=== PATIENT | male | born 1970 | race Caucasian/White ===

== ENCOUNTER → 2022-05-09 | Outpatient (CLI) | payer OTHER ==
[2022-05-09 15:48] LABS: BASO # 0.04 K/mm3 (0.02-0.10); EOS # 0.29 K/mm3 (0.04-0.40); EOS % 4.2 % (0.0-4.0); HEMATOCRIT 31.7 % (42.0-52.0); LYMPH# 1.89 K/mm3 (1.50-4.00); MEAN CELL VOLUME 87 fl (78-100); MEAN CORPUSCULAR HEMOGLOBIN 27 pg (27-31); MEAN CORPUSCULAR HGB CONC 32 g/dL (33-37); MONO # 0.47 K/mm3 (0.20-0.80); NEU # 4.17 K/mm3 (1.40-6.50); PLATELET COUNT 352 K/mm3 (130-400); RED BLOOD COUNT 3.65 M/mm3 (4.20-5.60); RED CELL DISTRIBUTION WIDTH 12.6 % (11.5-14.5); WHITE BLOOD COUNT 6.9 K/mm3 (4.8-10.8)
[2022-05-09 16:00] LABS: ALBUMIN 3.7 g/dL (3.5-5.0)
[2022-05-09 16:01] LABS: POTASSIUM 4.9 mmol/L (3.5-5.1)
[2022-05-09 16:03] LABS: TOTAL PROTEIN 8.3 g/dL (6.4-8.3)
[2022-05-09 16:05] LABS: TOTAL BILIRUBIN 0.3 mg/dL (0.2-1.2)
[2022-05-09 17:31] LABS: ERYTHROCYTE SEDIMENTATION RATE 83 mm/hr (0-20)
== END ==
LOC: LAB 14:31
PROVIDERS: Physician Assistant
DX: M86.9 Osteomyelitis, unspecified (principal)

== ENCOUNTER → 2022-05-15 | Outpatient (CLI) | payer OTHER ==
[2022-05-15 14:38] LABS: BASO # 0.03 K/mm3 (0.02-0.10); EOS # 0.24 K/mm3 (0.04-0.40); EOS % 4.6 % (0.0-4.0); HEMATOCRIT 36.5 % (42.0-52.0); HEMOGLOBIN 11.6 g/dL (13.5-18.0); LYMPH# 1.49 K/mm3 (1.50-4.00); MEAN CELL VOLUME 86 fl (78-100); MEAN CORPUSCULAR HEMOGLOBIN 27 pg (27-31); MEAN CORPUSCULAR HGB CONC 32 g/dL (33-37); MEAN PLATELET VOLUME 9.6 fl (7.4-10.4); MONO # 0.33 K/mm3 (0.20-0.80); NEU # 3.09 K/mm3 (1.40-6.50); PLATELET COUNT 306 K/mm3 (130-400); RED BLOOD COUNT 4.24 M/mm3 (4.20-5.60); RED CELL DISTRIBUTION WIDTH 12.6 % (11.5-14.5); WHITE BLOOD COUNT 5.2 K/mm3 (4.8-10.8)
[2022-05-15 14:49] LABS: ALBUMIN 3.9 g/dL (3.5-5.0); POTASSIUM 4.3 mmol/L (3.5-5.1)
[2022-05-15 14:50] LABS: CALCIUM 9.1 mg/dL (8.3-10.5)
[2022-05-15 14:51] LABS: TOTAL PROTEIN 8.5 g/dL (6.4-8.3)
[2022-05-15 14:53] LABS: TOTAL BILIRUBIN 0.5 mg/dL (0.2-1.2)
[2022-05-15 15:53] LABS: ERYTHROCYTE SEDIMENTATION RATE 55 mm/hr (0-20)
== END ==
LOC: LAB 14:06
PROVIDERS: Nurse Practitioner
DX: M86.9 Osteomyelitis, unspecified (principal)

== ENCOUNTER → 2022-05-22 | Outpatient (CLI) | payer OTHER ==
[2022-05-22 14:11] LABS: BASO # 0.02 K/mm3 (0.02-0.10); EOS # 0.18 K/mm3 (0.04-0.40); EOS % 3.6 % (0.0-4.0); HEMATOCRIT 39.5 % (42.0-52.0); HEMOGLOBIN 12.6 g/dL (13.5-18.0); LYMPH# 1.41 K/mm3 (1.50-4.00); MEAN CELL VOLUME 87 fl (78-100); MEAN CORPUSCULAR HEMOGLOBIN 28 pg (27-31); MEAN CORPUSCULAR HGB CONC 32 g/dL (33-37); MEAN PLATELET VOLUME 9.8 fl (7.4-10.4); MONO # 0.32 K/mm3 (0.20-0.80); NEU # 3.08 K/mm3 (1.40-6.50); PLATELET COUNT 267 K/mm3 (130-400); RED BLOOD COUNT 4.54 M/mm3 (4.20-5.60); RED CELL DISTRIBUTION WIDTH 12.9 % (11.5-14.5)
[2022-05-22 14:21] LABS: ALBUMIN 4.1 g/dL (3.5-5.0); POTASSIUM 4.9 mmol/L (3.5-5.1)
[2022-05-22 14:22] LABS: CALCIUM 9.4 mg/dL (8.3-10.5)
[2022-05-22 14:24] LABS: TOTAL PROTEIN 8.3 g/dL (6.4-8.3)
[2022-05-22 14:25] LABS: TOTAL BILIRUBIN 0.6 mg/dL (0.2-1.2)
[2022-05-22 15:15] LABS: ERYTHROCYTE SEDIMENTATION RATE 52 mm/hr (0-20)
== END ==
LOC: LAB 13:53
DX: Z01.89 Encounter for other specified special examinations (principal)

== ENCOUNTER 2022-05-29 15:43 | Outpatient (RCR) | payer OTHER ==
[2022-05-09 14:45] VITALS: BP 143/94
[2022-05-15 15:13] VITALS: BP 143/99
[2022-05-22 14:38] VITALS: BP 129/98
[~2022-05-29] VITALS: Ht 172.7 cm; Wt 79.2 kg
[2022-05-29 16:00] VITALS: BP 138/89
== END 2022-06-04 ==
LOC: AMSURD
DX: M86.9 Osteomyelitis, unspecified (principal)
CPT/HCPCS: 19898

== ENCOUNTER → 2022-05-29 | Outpatient (CLI) | payer OTHER ==
[2022-05-29 16:54] LABS: BASO # 0.03 K/mm3 (0.02-0.10); EOS # 0.27 K/mm3 (0.04-0.40); EOS % 5.3 % (0.0-4.0); HEMATOCRIT 39.7 % (42.0-52.0); HEMOGLOBIN 12.7 g/dL (13.5-18.0); LYMPH# 1.46 K/mm3 (1.50-4.00); MEAN CELL VOLUME 87 fl (78-100); MEAN CORPUSCULAR HEMOGLOBIN 28 pg (27-31); MEAN CORPUSCULAR HGB CONC 32 g/dL (33-37); MEAN PLATELET VOLUME 10.6 fl (7.4-10.4); MONO # 0.38 K/mm3 (0.20-0.80); NEU # 2.96 K/mm3 (1.40-6.50); PLATELET COUNT 257 K/mm3 (130-400); RED BLOOD COUNT 4.55 M/mm3 (4.20-5.60); WHITE BLOOD COUNT 5.1 K/mm3 (4.8-10.8)
[2022-05-29 17:05] LABS: ALBUMIN 4.1 g/dL (3.5-5.0); POTASSIUM 4.8 mmol/L (3.5-5.1); SODIUM 136 mmol/L (136-145)
[2022-05-29 17:07] LABS: CALCIUM 9.2 mg/dL (8.3-10.5)
[2022-05-29 17:08] LABS: GLUCOSE 99 mg/dL (75-110); TOTAL PROTEIN 8.6 g/dL (6.4-8.3)
[2022-05-29 17:09] LABS: CARBON DIOXIDE 21 mmol/L (22-29)
[2022-05-29 17:10] LABS: TOTAL BILIRUBIN 0.5 mg/dL (0.2-1.2)
[2022-05-29 17:13] LABS: AST-SGOT 29 U/L (5-34)
[2022-05-29 17:14] LABS: ALT/SGPT 22 U/L (0-55)
[2022-05-29 17:57] LABS: ERYTHROCYTE SEDIMENTATION RATE 30 mm/hr (0-20)
== END ==
LOC: LAB 15:42
DX: M86.9 Osteomyelitis, unspecified (principal)

== ENCOUNTER → 2022-06-05 | Outpatient (CLI) | payer OTHER ==
[2022-06-05 13:21] LABS: BASO # 0.03 K/mm3 (0.02-0.10); EOS % 2.3 % (0.0-4.0); HEMATOCRIT 42.1 % (42.0-52.0); HEMOGLOBIN 13.5 g/dL (13.5-18.0); LYMPH# 1.25 K/mm3 (1.50-4.00); MEAN CELL VOLUME 88 fl (78-100); MEAN CORPUSCULAR HEMOGLOBIN 28 pg (27-31); MEAN CORPUSCULAR HGB CONC 32 g/dL (33-37); MEAN PLATELET VOLUME 10.9 fl (7.4-10.4); MONO # 0.36 K/mm3 (0.20-0.80); NEU # 2.67 K/mm3 (1.40-6.50); PLATELET COUNT 259 K/mm3 (130-400); WHITE BLOOD COUNT 4.4 K/mm3 (4.8-10.8)
[2022-06-05 13:29] LABS: ALBUMIN 4.2 g/dL (3.5-5.0); POTASSIUM 4.7 mmol/L (3.5-5.1)
[2022-06-05 13:31] LABS: CALCIUM 9.3 mg/dL (8.3-10.5)
[2022-06-05 13:32] LABS: TOTAL PROTEIN 8.7 g/dL (6.4-8.3)
[2022-06-05 13:34] LABS: TOTAL BILIRUBIN 0.6 mg/dL (0.2-1.2)
[2022-06-05 14:32] LABS: ERYTHROCYTE SEDIMENTATION RATE 30 mm/hr (0-20)
== END ==
LOC: LAB 10:50
DX: M86.9 Osteomyelitis, unspecified (principal)

== ENCOUNTER 2022-06-12 10:37 | Outpatient (RCR) | payer OTHER ==
[2022-06-05 10:30] VITALS: BP 136/97
[~2022-06-12] VITALS: Ht 172.7 cm; Wt 79.2 kg
[2022-06-12 11:15] VITALS: BP 151/99
== END 2022-07-05 ==
LOC: AMSURD
DX: M86.9 Osteomyelitis, unspecified (principal)
CPT/HCPCS: 19898

== ENCOUNTER → 2022-06-12 | Outpatient (CLI) | payer OTHER ==
[2022-06-12 11:49] LABS: HEMATOCRIT 41.5 % (42.0-52.0); HEMOGLOBIN 13.4 g/dL (13.5-18.0); MEAN CELL VOLUME 87 fl (78-100); MEAN CORPUSCULAR HEMOGLOBIN 28 pg (27-31); MEAN CORPUSCULAR HGB CONC 32 g/dL (33-37); MEAN PLATELET VOLUME 10.4 fl (7.4-10.4); PLATELET COUNT 221 K/mm3 (130-400); RED BLOOD COUNT 4.75 M/mm3 (4.20-5.60); RED CELL DISTRIBUTION WIDTH 12.9 % (11.5-14.5); WHITE BLOOD COUNT 4.3 K/mm3 (4.8-10.8)
[2022-06-12 11:55] LABS: ALBUMIN 4.2 g/dL (3.5-5.0)
[2022-06-12 11:56] LABS: POTASSIUM 4.6 mmol/L (3.5-5.1)
[2022-06-12 11:57] LABS: CALCIUM 9.1 mg/dL (8.3-10.5)
[2022-06-12 11:58] LABS: TOTAL PROTEIN 8.5 g/dL (6.4-8.3)
[2022-06-12 12:00] LABS: TOTAL BILIRUBIN 0.4 mg/dL (0.2-1.2)
[2022-06-12 12:27] LABS: BAND 1 % (0-10); LYMPHOCYTE 11 % (20-51); MONOCYTE 11 % (3-10); NEUTROPHILS 75 % (42-75)
[2022-06-12 13:16] LABS: ERYTHROCYTE SEDIMENTATION RATE 20 mm/hr (0-20)
== END ==
LOC: LAB 10:43
PROVIDERS: Nurse Practitioner
DX: M86.9 Osteomyelitis, unspecified (principal); R50.9 Fever, unspecified; R51.9 Headache, unspecified